=== PATIENT | male | born 1945 | race Caucasian/White ===

== ENCOUNTER 2016-08-01 19:39 | Emergency (ER) | payer MEDICARE ==
[~2016-08-01 19:39] MED LIST: ALPR.25 PO; ASPI81TA82 PO; CETI5TAB2 PO; ENAL10TA7 PO; GLUCTAB PO; GLYB1.2538 PO; LOVA40TA PO; MULT-65 PO; PLAV75TA PO; TRIA1SPR6 EACH NARE; VITA-83 PO; VITATAB25 PO
--- NOTE | 2016-08-01 20:06 | PD ---
HPI Chief Complaint: Eye Problems/Injury Time Seen by Provider: 20:03 Travel History International Travel<30 days: No Contact w/Intl Traveler<30days: No Traveled to known affect area: No History of Present Illness HPI 70-year-old male presents to emergency Department with tender erythematous indurated area to the left lower eyelid. Patient states he was seen by his physician on Wednesday and prescribed ciprofloxacin 250 mg twice a day. Patient states it hasn't really improved, although he doubled up on his dose yesterday, and it feels like the swelling is somewhat better today but lesion seems to be consolidating to the left lateral lower eyelid. Denies any visual problems, fever, chills, or other symptoms. He is allergic to Polysporin and adhesives. PFSH Past Medical History Arthritis: No Asthma: No Autoimmune Disease: No Blood Disorders: No Heart Rhythm Problems: Yes Cancer: Yes ([place]) Cardiovascular Problems: Yes ([place], [place]) High Cholesterol: Yes Chemotherapy: No Chest Pain: Yes Congestive Heart Failure: No COPD: No Cerebrovascular Accident: No Coronary Artery Disease: Yes Diabetes: Yes Diminished Hearing: No Endocrine: Yes GERD: No Glaucoma: No Genitourinary: No Headaches: No Hepatitis: No Hiatal Hernia: No Hypertension: No Immune Disorder: No Kidney Stones: No Musculoskeletal: Yes (NECK, BACK) Neurologic: No Psychiatric: Yes (HX ANXIETY) Reproductive: No Respiratory: Yes (COUGHING UP BLOOD) Integumentary: Yes (SQUAMAS CELL CA REMOVED) Migraines: No Myocardial Infarction: Yes (2000 HEART ATTACK) Radiation Therapy: No Renal Failure: No Seizures: No Sickle Cell Disease: No Sleep Apnea: No Thyroid Disease: No Ulcer: No Past Surgical History Abdominal Surgery: No AICD: No Appendectomy: No Arteriovenous Shunt: No Body Medical Devices: CARDIAC STENTS Cardiac Surgery: Yes (1997 AND 2000 HEART STENTS INSERTED) Cholecystectomy: No Coronary Stent: Yes Ear Surgery: No Endocrine Surgery: No Eye Surgery: No Genitourinary Surgery: No Gynecologic Surgery: No Insulin Pump: No Joint Replacement: No Oral Surgery: No Pacemaker: No Thoracic Surgery: No Other Surgery: Yes Social History Alcohol Use: Yes (OCCASSIONAL) Tobacco Use: Yes (ONE PACK PER DAY) Substance Use: No Allergies-Medications (Allergen,Severity, Reaction): Coded Allergies: Adhesives (Verified Allergy, Mild, RASH, 08/28/15) Polysporin (Verified Allergy, Mild, RASH, 08/28/15) Reported Meds & Prescriptions Reported Meds & Active Scripts Active Dexamethasone Opth Drops (Dexamethasone Sodium Phosphate) 0.1% Soln 1 Drop LEFT EYE Q4H Vigamox Opth Drops (Moxifloxacin Opth Drops) 0.5 % Soln 1 Drop LEFT EYE TID Reported Enalapril Maleate/Hydroch (Enalapril Maleate & Hydrochlor) 10 Mg Tab 10 Mg PO DAILY Lovastatin 40 Mg Tab 40 Mg PO HS Plavix (Clopidogrel Bisulfate) 75 Mg Tab 75 Mg PO DAILY Vitamin D-[address] (Cholecalciferol) 1,000 Unit Tab 2,000 Unit PO DAILY Vitamin C (Calcium Ascorbate) 500 Mg Tab 500 Mg PO DAILY Multi-Vitamin Daily (Multivitamins) Daily Tab 1 Tab PO DAILY Nasacort Allergy 24Hr Chi (Triamcinolone Acetonide (Nasal) 55 Mcg/Act Spr 2 [place] EACH NARE DAILY Aspir-81 (Aspirin) 81 Mg Tab 81 Mg PO DAILY Zyrtec (Cetirizine HCl) 5 Mg Tab 5 Mg PO DAILY Glucophage XR 24 HR (Metformin HCl) 500 Mg Tab 500 Mg PO BID Glyburide 1.25 Mg Tab 1.25 Mg PO HS Xanax 0.25 Mg (Alprazolam) 0.25 Mg Tab 0.25 Mg PO BID Review of Systems Except as stated in HPI: all other systems reviewed are Neg General / Constitutional: No: Fever Eyes: Positive: Pain, Tearing, Other (see history present illness.), No: Diploplia, Blurred Vision, Photophobia, Drainage, Redness, Foreign Body Sensation, Blind Spots, Visual changes, Blindness HENT: No: Headaches Cardiovascular: No: Chest Pain or Discomfort Respiratory: No: Shortness of Breath Gastrointestinal: No: Abdominal Pain Genitourinary: No: Dysuria Musculoskeletal: No: Pain Skin: No Rash Neurologic: No: Weakness Psychiatric: No: Depression Endocrine: No: Polydipsia Hematologic/Lymphatic: No: Easy Bruising Physical Exam Narrative GENERAL: Patient appears in no acute distress. SKIN: Warm and dry. Normal color. Normal turgor. HEAD: Atraumatic. Normocephalic. EYES: Pupils equal and round. No scleral icterus. Mild right-sided injection or drainage. Patient has swelling and erythema to the left lower lateral eyelid with what appears to be a stye or chalazion. This is mildly tender with palpation. ENT: No nasal bleeding or discharge. Mucous membranes pink and moist. Nares is clear. Airway is patent. NECK: Trachea midline. Supple nontender. CARDIOVASCULAR: Regular rate and rhythm. RESPIRATORY: No accessory muscle use. Clear to auscultation. Breath sounds equal bilaterally. MUSCULOSKELETAL: Extremities without clubbing, cyanosis, or edema. No obvious deformities. NEUROLOGICAL: Awake and alert. No obvious cranial nerve deficits. Motor grossly within normal limits. Five out of 5 muscle strength in the arms and legs. Normal speech. PSYCHIATRIC: Appropriate mood and affect; insight and judgment normal. [facility] Medical Decision Making Medical Screen Exam Complete: Yes Emergency Medical Condition: Yes Differential Diagnosis Left eye stye. Conjunctivitis. Blepharitis. Narrative Course Patient is medically stable at time of exam. Patient is started on Vigamox 0.5% ophthalmic drops to be placed 1 drop in the left eye 3 times daily for 7-10 days. Patient also given dexamethasone ophthalmic drops 0.1% one drop in the left eye every 4 hours for inflammation. Patient can discontinue his oral Cipro. 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 Patient can return to emergency Department with worsening symptoms as needed. Diagnosis Primary Impression: Stye Qualified Code: H00.015 - Hordeolum externum of left lower eyelid Additional Instructions: Patient is started on Vigamox 0.5% ophthalmic drops to be placed 1 drop in the left eye 3 times daily for 7-10 days. Patient also given dexamethasone ophthalmic drops 0.1% one drop in the left eye every 4 hours for inflammation. Patient can discontinue his oral Cipro. 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 Patient can return to emergency Department with worsening symptoms as needed. Scripts Dexamethasone Opth Drops 0.1% Soln1 Drop LEFT EYE Q4H #1 BOTTLE Ref 0 Prov:Austyn Estevez MD 08/01/16 Moxifloxacin Opth Drops (Vigamox Opth Drops)0.5 % Soln1 Drop LEFT EYE TID #1 BOTTLE Ref 0 Prov:Austyn Estevez MD 08/01/16 Disposition: 01 DISCHARGE HOME Condition: Stable Oscar Ahuja August 01, 2016 20:06
[2016-08-01] MEDS ORDERED: VIGA0.5D LEFT EYE (20:08)
[2016-08-01] MEDS ORDERED: DEXA.1%O LEFT EYE (20:08)
[2016-08-01] MEDS ORDERED: METF500T PO (20:25)
[2016-08-01] MEDS ORDERED: MOME0.1S17 TOPICAL (20:25)
[2016-08-01] MEDS ORDERED: XARE20TA PO (20:25)
[2016-08-01] MEDS ORDERED: ENAL10TA PO (20:25)
[2016-08-01] MEDS ORDERED: CIPR-9 PO (20:25)
[2016-08-01] MEDS ORDERED: GLYB1.253 PO (20:25)
[2016-08-01] MEDS ORDERED: LORA-361 PO (20:25)
[2016-08-01] MEDS ORDERED: TRIA1SPR5 EACH NARE (20:25)
[2016-08-01] MEDS ORDERED: KETO0.02 EACH EYE (20:25)
[2016-08-01] MEDS ORDERED: LOVA40TA PO (20:25)
[2016-08-01] MEDS ORDERED: IMDUR PO (20:25)
[2016-08-01] MEDS ORDERED: ASPI81CH CHEW (20:25)
[2016-08-01] MEDS ORDERED: ALPR0.25 PO (20:25)
[2016-08-02] MEDS ORDERED: ISOS60TA PO (23:12)
== END 2016-08-01 20:40 | disposition home or self-care (01) ==
LOC: PHEFT 19:39
DX: H00.015 Hordeolum externum left lower eyelid (principal); I25.2 Old myocardial infarction; E78.00 Pure hypercholesterolemia, unspecified; F17.210 Nicotine dependence, cigarettes, uncomplicated; Z95.5 Presence of coronary angioplasty implant and graft
CPT/HCPCS: 99283